=== PATIENT | female | born 1955 | race Caucasian/White ===

== ENCOUNTER 2025-01-16 17:40 | Emergency (ER) | payer OTHER ==
[~2025-01-16] VITALS: Ht 154.9 cm; Wt 63.0 kg
--- NOTE | 2025-01-16 17:48 | NUR ---
PT TO ER BED 08 C/O WORSENING COUGH AND CONGESTION FOR 5 DAYS, LAST NIGHT STARTED TO NOTE "STREAKS" OF BLOOD IN HER SPUTUM. PT ALSO FINISHED Z PACK AND STEROIDS W NO RELIEF. ALSO STATES MOTHER IS SICK WITH PNEUMONIA. STABLE VITALS. [employer]. AWAITING MD LOPEZ.
--- NOTE | 2025-01-16 17:50 | NUR ---
DR HUDSON AT BEDSIDE FOR EVAL.
[2025-01-16 18:28] LABS: PLATELET COUNT (AUTO) 404 K/uL (150-450); RED BLOOD CELL COUNT(AUTO) 4.03 MIL/uL (4.0-5.2); RED CELL DISTRIBUTION WIDTH 13.8 % (11.5-15.0); WHITE BLOOD COUNT (AUTO) 11.7 K/uL (4.3-11.0)
[2025-01-16] MEDS ORDERED: BENZ-13 PO (18:40)
[2025-01-16] MEDS ORDERED: ALBU18HF2 INH (18:40)
[2025-01-16 18:42] LABS: CALCIUM, SERUM 8.6 mg/dL (8.5-10.1); CREATININE 0.9 mg/dL (0.6-1.3); SODIUM SERUM 140.0 mmol/L (136-145); UREA NITROGEN, BLOOD 14.0 mg/dL (7-18)
--- NOTE | 2025-01-16 18:46 | NUR ---
Patient discharged to home in stable condition. Written and verbal after care instructions given. Patient verbalizes understanding of instruction.
[2025-01-16 18:47] VITALS: BP 125/75; TEMP 98.5; O2SAT 99
== END 2025-01-16 18:47 | disposition home or self-care (01) ==
LOC: ER 17:42
DX: J20.9 Acute bronchitis, unspecified (principal); Z90.49 Acquired absence of other specified parts of digestive tract; Z90.710 Acquired absence of both cervix and uterus; Z91.048 Other nonmedicinal substance allergy status
CPT/HCPCS: 36415; 71045-TC; 80048-TC; 85025-TC

== ENCOUNTER 2025-01-26 13:17 | Emergency (ER) | payer OTHER ==
[~2025-01-26] VITALS: Ht 154.9 cm; Wt 63.5 kg
[~2025-01-26 13:17] MED LIST: ALBU18HF2 INH; BENZ-13 PO
[2025-01-26 14:36] VITALS: BP 129/78; TEMP 98.8; O2SAT 99
== END 2025-01-26 14:37 | disposition home or self-care (01) ==
LOC: ER 13:22
DX: M67.431 Ganglion, right wrist (principal); M19.031 Primary osteoarthritis, right wrist; M19.041 Primary osteoarthritis, right hand; Z90.49 Acquired absence of other specified parts of digestive tract; Z90.710 Acquired absence of both cervix and uterus
CPT/HCPCS: 73110; 73130-TC